=== PATIENT | female | born 1965 | race Caucasian/White ===

== ENCOUNTER 2016-06-30 11:47 | Day surgery (SDC) | payer BC ==
[2016-06-25 21:16] LABS: HEMATOCRIT 39.7 % (36.0-48.0); HEMOGLOBIN 13.1 g/dL (12.0-16.0)
[2016-06-25 21:38] LABS: CALCIUM, SERUM 8.8 MG/DL (8.5-10.4); CHLORIDE, SERUM 109 MMOL/L (96-112); CO2 (CARBON DIOXIDE) 27 MMOL/L (24-34); CREATININE 0.78 MG/DL (0.55-1.02); GFR AFRICAN AMERICAN 103 ML/MIN (>=60); GFR NON AFRICAN AMERICAN 89 ML/MIN (>=60); GLUCOSE, SERUM 103 MG/DL (60-99); POTASSIUM, SERUM 4.1 MMOL/L (3.5-5.3); SODIUM, SERUM 146 MMOL/L (135-148)
[2016-06-25 21:39] LABS: BUN (BLOOD UREA NITROGEN) 16 MG/DL (6-23)
--- NOTE | ~2016-06-30 | OP ---
Record Of Operation [facility] [address] [place]. [address] NAME: FAY BISWAS : 65 STATUS : [facility]#: [id number] AGE: 50 ADM/REG DATE : 06/30/16 MR#: [id number] REPORT SERV DATE: 06/30/16 DICTATED BY: CHRIS MCKEON DATE: 06/30/16 REPORT STATUS : Draft TRANSCRIBED BY: MODL DATE: 06/30/16 DATE OF PROCEDURE: 06/30/2016 PREOPERATIVE DIAGNOSIS: Bilateral mandibular anh. POSTOPERATIVE DIAGNOSIS: Bilateral mandibular anh. PROCEDURES PERFORMED: Excision of bilateral mandibular anh. SURGEON: Chris Mckeon D.D.S. ANESTHESIA: GETA with nasal PERNELL. INDICATIONS: This is a 50-year-old female, who was referred to me by her general dentist for removal of symptomatic mandibular exostosis on the lingual cortex of her mandible on both sides. DESCRIPTION OF PROCEDURE: After informed consent was given, the patient was taken to the operating room where she underwent a general anesthetic via nasotracheal intubation. The patient was prepped and draped in a normal sterile fashion for procedure of this type. Approximately 10 mL of 0.5% Marcaine was injected into the posterior mandible on both sides. A 15 blade was used to make an incision around the lingual of mandibular teeth. A full- thickness mucoperiosteal flap was reflected to reveal the bone on the lingual surface of the mandible. A pineapple shaped bur on a high-speed hand piece was used to carefully paint away the bone on the lingual cortex. A round juhi bur was used to smooth any rough edges. Copious irrigation was used in the flap. Estimated blood loss was 20 mL because surgery adapted with 3-0 chromic gut suture. CLAUDIA/KOKI Chris Mckeon D.D.S. / [id number] CC: Matias Cantu Jr., M.D.
[~2016-06-30 11:47] MED LIST: ALTA5 PO; PERCOCET1 TA4 PO
== END 2016-06-30 17:33 | disposition home or self-care (01) ==
LOC: SDC 11:47
PROVIDERS: Oral & Maxillofacial Surgery
PROC: 0NBT0ZZ Excision of Right Mandible, Open Approach (ICD-10-PCS; 2016-06-30)
PROC: 0NBV0ZZ Excision of Left Mandible, Open Approach (ICD-10-PCS; principal; 2016-06-30 13:15)
DX: M27.8 Other specified diseases of jaws (principal); I10 Essential (primary) hypertension; Z88.8 Allergy status to other drugs, medicaments and biological substances; Z88.2 Allergy status to sulfonamides; Z88.5 Allergy status to narcotic agent
CPT/HCPCS: 36415; 80048; 85014; 85018; 93005; A9270-GY; J0690; J2250; J2405; J2710; J3010